=== PATIENT | female | born 1970 | race Two or more races ===

== ENCOUNTER 2021-07-21 17:24 | Emergency (ER) | payer OTHER ==
[~2021-07-21] VITALS: Ht 152.4 cm; Wt 56.8 kg
[2021-07-21] MEDS ORDERED: LIDOCAINE 5% TRANSDERMAL PATCH TD ONE (19:00)
[2021-07-21] MEDS ORDERED: ACETAMINOPHEN 325 MG TABLET PO ONE (19:00)
[2021-07-21] MEDS ORDERED: KETOROLAC TROMETHAMINE 30 MG/ML VIAL IM ONE (19:00)
[2021-07-21] MEDS ORDERED: DIAZEPAM 5 MG TABLET PO ONE (19:00)
[2021-07-21 19:58] VITALS: BP 141/88
== END 2021-07-21 20:57 | disposition home or self-care (01) ==
LOC: EMS 17:24
DX: M62.838 Other muscle spasm (principal); M54.2 Cervicalgia; F32.9 Major depressive disorder, single episode, unspecified
CPT/HCPCS: 72125; 96372; 99284; J1885

== ENCOUNTER 2022-02-09 15:23 | Emergency (ER) | payer OTHER ==
[~2022-02-09] VITALS: Ht 154.9 cm; Wt 57.0 kg
[2022-02-09] MEDS ORDERED: SERT-158 PO (16:11)
[2022-02-09] MEDS ORDERED: TRAZ-252 PO (16:11)
[2022-02-09] MEDS ORDERED: IBUPROFEN 800 MG TABLET PO ONE (16:30)
[2022-02-09 19:20] VITALS: BP 126/61
== END 2022-02-09 20:01 | disposition home or self-care (01) ==
LOC: EMS 16:10
DX: S63.501A Unspecified sprain of right wrist, initial encounter (principal); Z88.0 Allergy status to penicillin; Z79.899 Other long term (current) drug therapy; Y04.0XXA Assault by unarmed brawl or fight, initial encounter; Y93.89 Activity, other specified; Y92.89 Other specified places as the place of occurrence of the external cause; Y99.0 Civilian activity done for income or pay
CPT/HCPCS: 99283